=== PATIENT | male | born 1945 | race Caucasian/White ===

== ENCOUNTER 2016-07-13 11:54 | Emergency (ER) | payer OTHER ==
[~2016-07-13] VITALS: Ht 180.3 cm; Wt 104.3 kg
[~2016-07-13 11:54] MED LIST: CARV3.1240 PO; FLUO20CA19 PO; FOLIPOW28 PO; FURO40TA4 PO; LISI2.5T47 PO; NALTPOW PO; PRA25T PO; SIMV-13 PO; THI100I PO
[2016-07-13 12:11] VITALS: BP 109/65
[2016-07-13 16:31] LABS: Basophils # (auto) 0 uL; Basophils % (auto) 0.4 % (0.0-2.0); DEFINITIVE VIEW TRANSMISSION; Eosinophils # (auto) 0.1 uL; Eosinophils % (auto) 2.1 % (0.0-7.0); Hematocrit 38.2 % (41.0-53.0); Hemoglobin 12.4 g/dL (13.5-17.5); Lymphocytes # (auto) 1.8 uL; Lymphocytes % (auto) 24.2 % (10.0-50.0); Mean Corpuscular Hemoglobin 33.6 pg (28.0-32.0); Mean Corpuscular Hgb Conc. 32.5 g/dL (32.0-36.0); Mean Corpuscular Volume 103.3 fL (80.0-100.0); Mean Platelet Volume 8.6 fL (7.4-10.4); Monocytes # (auto) 0.6 uL; Monocytes % (auto) 8.6 % (0.0-12.0); Neutrophils # (auto) 4.7 uL; Neutrophils % (auto) 64.7 % (37.0-80.0); Platelet Count (auto) 212 10^3/uL (140-450); Red Cell Distribution Width 14.8 % (11.6-16.0); White Blood Cell 7.3 10^3/uL (4.4-10.8)
[2016-07-13 16:39] LABS: Albumin 3.5 g/dL (3.4-5.0); BUN/Creatinine Ratio 16.4; Bilirubin, Total 0.4 mg/dL (0.2-1.0); Calcium 8.5 mg/dL (8.5-10.1); Potassium 4.1 mmol/L (3.5-5.1); Total Protein 6.7 g/dL (6.4-8.2)
== END 2016-07-13 18:02 | disposition home or self-care (01) ==
LOC: EDBD 11:54 → ER 12:01
DX: S01.81XA Laceration without foreign body of other part of head, initial encounter (principal); S09.90XA Unspecified injury of head, initial encounter; I50.9 Heart failure, unspecified; J44.9 Chronic obstructive pulmonary disease, unspecified; K76.9 Liver disease, unspecified; Z88.6 Allergy status to analgesic agent; Z88.8 Allergy status to other drugs, medicaments and biological substances; X58.XXXA Exposure to other specified factors, initial encounter; Y93.89 Activity, other specified; Y99.8 Other external cause status; Y92.89 Other specified places as the place of occurrence of the external cause
CPT/HCPCS: 36415; 70450; 70486; 72125; 80053; 80320; 82962; 85025

== ENCOUNTER 2016-07-28 10:08 | Emergency (ER) | payer OTHER ==
[~2016-07-28] VITALS: Ht 177.8 cm; Wt 91.6 kg
[2016-07-28] MEDS ORDERED: SODIUM CHLORIDE 0.9% 1,000 ML IVB ONE (11:15)
[2016-07-28 12:16] LABS: Basophils # (auto) 0 uL; Basophils % (auto) 0.7 % (0.0-2.0); DEFINITIVE VIEW TRANSMISSION; Eosinophils # (auto) 0.1 uL; Eosinophils % (auto) 2.5 % (0.0-7.0); Hemoglobin 12.2 g/dL (13.5-17.5); Lymphocytes # (auto) 1.2 uL; Lymphocytes % (auto) 28.3 % (10.0-50.0); Mean Corpuscular Hemoglobin 32.6 pg (28.0-32.0); Mean Corpuscular Hgb Conc. 31.3 g/dL (32.0-36.0); Mean Platelet Volume 8.7 fL (7.4-10.4); Monocytes # (auto) 0.3 uL; Monocytes % (auto) 7.8 % (0.0-12.0); Neutrophils # (auto) 2.5 uL; Neutrophils % (auto) 60.7 % (37.0-80.0); Platelet Count (auto) 200 10^3/uL (140-450); Red Cell Distribution Width 14.4 % (11.6-16.0); White Blood Cell 4.2 10^3/uL (4.4-10.8)
[2016-07-28 12:27] LABS: Mean Corpuscular Volume 104.1 fL (80.0-100.0)
[2016-07-28 12:32] LABS: Partial Thromboplastin Time 26.8 sec (22.64-33.71); Prothrombin Time 10.3 sec (9.37-12.3)
[2016-07-28 12:41] LABS: Albumin 3.6 g/dL (3.4-5.0); BUN/Creatinine Ratio 16.9; Bilirubin, Total 0.3 mg/dL (0.2-1.0); Calcium 8.2 mg/dL (8.5-10.1); Magnesium 2.2 mg/dL (1.6-2.6); Potassium 4.6 mmol/L (3.5-5.1); Total Protein 6.8 g/dL (6.4-8.2)
[2016-07-28] MEDS ORDERED: THIAMINE INJ 100 MG, MULTIPLE VITAMIN 10 ML, FOLIC ACID 1 MG, MAGNESIUM SULF SDV 50% 8 ... IV ONE ×5 (13:00)
[2016-07-28 13:37] LABS: B-Type Natriuretic Peptide 75.9 pg/mL (0-100)
[2016-07-28 13:38] LABS: Temperature: 23.1 C (20.0-25.0)
[2016-07-28 18:18] VITALS: BP 150/100
== END 2016-07-28 18:55 | disposition short-term general hospital (02) ==
LOC: EDUNIT# 10:08 → ER 10:13
DX: F10.129 Alcohol abuse with intoxication, unspecified (principal); R55 Syncope and collapse; J44.9 Chronic obstructive pulmonary disease, unspecified; I11.0 Hypertensive heart disease with heart failure; I50.9 Heart failure, unspecified; Y90.8 Blood alcohol level of 240 mg/100 ml or more; D50.9 Iron deficiency anemia, unspecified
CPT/HCPCS: 36415; 36600; 70450; 71010; 80053; 80320; 82805; 82962; 83735; 83880; 84484; 85025; 85610; 85730; 93005; 94761; 96361; 96365; 99285; J3411; J3475; J7030

== ENCOUNTER 2016-08-20 16:17 | Emergency (ER) | payer OTHER ==
[~2016-08-20] VITALS: Ht 167.6 cm; Wt 99.8 kg
[2016-08-20 20:07] LABS: Urine RBC None Seen /hpf (0 - 3)
[2016-08-20 20:10] LABS: Basophils # (auto) 0 uL; Basophils % (auto) 0.4 % (0.0-2.0); DEFINITIVE VIEW TRANSMISSION; Eosinophils # (auto) 0.2 uL; Eosinophils % (auto) 3.1 % (0.0-7.0); Hematocrit 44.4 % (41.0-53.0); Hemoglobin 14.6 g/dL (13.5-17.5); Lymphocytes % (auto) 30.4 % (10.0-50.0); Mean Corpuscular Hemoglobin 33.6 pg (28.0-32.0); Mean Corpuscular Hgb Conc. 32.9 g/dL (32.0-36.0); Mean Corpuscular Volume 102.2 fL (80.0-100.0); Mean Platelet Volume 9.1 fL (7.4-10.4); Monocytes # (auto) 0.4 uL; Monocytes % (auto) 6.8 % (0.0-12.0); Neutrophils # (auto) 3.9 uL; Neutrophils % (auto) 59.3 % (37.0-80.0); Platelet Count (auto) 235 10^3/uL (140-450); Red Cell Distribution Width 14.2 % (11.6-16.0); White Blood Cell 6.6 10^3/uL (4.4-10.8)
[2016-08-20 20:14] LABS: Urine Bilirubin Negative (Negative); Urine Blood Negative /uL (Negative); Urine Color Yellow (Yellow); Urine Glucose Normal (Normal); Urine Hyaline Cast FEW /lpf (0 - 2); Urine Ketone Negative (Negative); Urine Mucus FEW (None Seen); Urine Nitrite Negative (Negative); Urine Squamous Epithelial Cell FEW /hpf (<5); Urine Urobilinogen Normal (Negative)
[2016-08-20] MEDS ORDERED: BANANA BAG KIT 1 EA IV ONE (20:27)
[2016-08-20] MEDS ORDERED: THIAMINE INJ 100 MG, MULTIPLE VITAMIN 10 ML, FOLIC ACID 1 MG, MAGNESIUM SULF SDV 50% 8 ... IV ONE ×5 (20:30)
[2016-08-20 20:31] LABS: Albumin 3.8 g/dL (3.4-5.0); BUN/Creatinine Ratio 17.7; Bilirubin, Total 0.3 mg/dL (0.2-1.0); Calcium 8.3 mg/dL (8.5-10.1); Potassium 3.8 mmol/L (3.5-5.1); Total Protein 7.2 g/dL (6.4-8.2)
[2016-08-21 00:45] VITALS: BP 112/82
== END 2016-08-21 02:07 | disposition home or self-care (01) ==
LOC: EDUNIT# 16:17 → ER 16:37
DX: F10.120 Alcohol abuse with intoxication, uncomplicated (principal); K70.9 Alcoholic liver disease, unspecified; I11.0 Hypertensive heart disease with heart failure; I50.9 Heart failure, unspecified; J44.9 Chronic obstructive pulmonary disease, unspecified; Z88.6 Allergy status to analgesic agent; Z88.1 Allergy status to other antibiotic agents; Z88.8 Allergy status to other drugs, medicaments and biological substances
CPT/HCPCS: 36415; 80053; 80320; 81001; 85025; 93005; 96365; 96366; 99285; G0434; J3411; J3475; J7030

== ENCOUNTER 2017-08-12 03:28 | Emergency (ER) | payer OTHER ==
[~2017-08-12] VITALS: Ht 177.8 cm; Wt 117.9 kg
[2017-08-12 04:10] LABS: Basophils # (auto) 0.1 uL; Basophils % (auto) 1.5 % (0.0-2.0); Eosinophils # (auto) 0.3 uL; Eosinophils % (auto) 3.7 % (0.0-7.0); Hematocrit 38.5 % (41.0-53.0); Hemoglobin 12.6 g/dL (13.5-17.5); Lymphocytes # (auto) 1.2 uL; Lymphocytes % (auto) 15.1 % (10.0-50.0); Mean Corpuscular Hemoglobin 30.1 pg (28.0-32.0); Mean Corpuscular Hgb Conc. 32.7 g/dL (32.0-36.0); Monocytes # (auto) 0.7 uL; Monocytes % (auto) 8.8 % (0.0-12.0); Neutrophils # (auto) 5.6 uL; Neutrophils % (auto) 70.9 % (37.0-80.0); Nucleated Red Blood Cells % 0.1 %; Platelet Count (auto) 195 10^3/uL (140-450); Red Blood Cells 4.18 10^6/uL (4.5-5.90); Red Cell Distribution Width 18.7 % (11.8-14.3); White Blood Cell 7.9 10^3/uL (4.4-10.8)
[2017-08-12 04:27] LABS: Alanine Aminotransferase 20 U/L (16-61); Albumin 3.6 g/dL (3.4-5.0); Anion Gap 7 (5-15); Aspartate Aminotransferase 42 U/L (15-37); BUN/Creatinine Ratio 20.7; Blood Urea Nitrogen 35 mg/dL (7-18); Calcium 8.2 mg/dL (8.5-10.1); Carbon Dioxide 28 mmol/L (21-32); Chloride 104 mmol/L (98-107); GFR African American 52 mL/min; GFR Non-African American 43 mL/min; Glucose 91 mg/dL (74-106); Potassium 3.6 mmol/L (3.5-5.1); Sodium 139 mmol/L (136-145)
[2017-08-12 04:32] LABS: Alkaline Phosphatase 109 U/L (45-117); Bilirubin, Total 0.3 mg/dL (0.2-1.0); Total Protein 7.6 g/dL (6.4-8.2)
[2017-08-12 04:33] LABS: INR 0.94 (0.9-1.15); Prothrombin Time 10.2 sec (9.37-12.3)
[2017-08-12 08:17] LABS: Urine WBC None Seen /hpf (0 - 3)
[2017-08-12 08:27] LABS: Urine Bacteria NONE SEEN /hpf (None Seen); Urine Blood Negative /uL (Negative); Urine Specific Gravity 1.021 (1.001-1.035)
[2017-08-12 10:22] VITALS: BP 110/68
== END 2017-08-12 10:37 | disposition short-term general hospital (02) ==
LOC: EDBD 03:28 → ER 03:32
DX: G93.41 Metabolic encephalopathy (principal); D50.9 Iron deficiency anemia, unspecified; I11.0 Hypertensive heart disease with heart failure; I50.9 Heart failure, unspecified; J44.9 Chronic obstructive pulmonary disease, unspecified
CPT/HCPCS: 36415; 70450; 71045; 72125; 80053; 81001; 83880; 84484; 85025; 85610; 85730; 93005

== ENCOUNTER 2017-10-26 21:22 | Emergency (ER) | payer OTHER ==
[~2017-10-26] VITALS: Ht 177.8 cm; Wt 108.9 kg
[2017-10-27] MEDS ORDERED: IPRATROPIUM BROM 0.5 MG/2.5ML INH SOL NEB ONE (01:30)
[2017-10-27] MEDS ORDERED: ALBUTEROL SULF 2.5 MG/0.5ML(0.5%) NEB SOLN NEB ONE (01:30)
[2017-10-27] MEDS ORDERED: methylPREDNISolone SOD SUCC 125 MG/2 ML VL IV ONE (01:30)
[2017-10-27 02:28] LABS: Basophils # (auto) 0.1 uL; Basophils % (auto) 0.9 % (0.0-2.0); Eosinophils # (auto) 0.1 uL; Eosinophils % (auto) 1.4 % (0.0-7.0); Hematocrit 37.9 % (41.0-53.0); Hemoglobin 12.2 g/dL (13.5-17.5); Lymphocytes # (auto) 1.6 uL; Mean Corpuscular Hgb Conc. 32.2 g/dL (32.0-36.0); Monocytes # (auto) 0.7 uL; Monocytes % (auto) 13.7 % (0.0-12.0); Neutrophils # (auto) 2.9 uL; Nucleated Red Blood Cells % 0.1 %; Platelet Count (auto) 164 10^3/uL (140-450); Red Blood Cells 4.08 10^6/uL (4.5-5.90); Red Cell Distribution Width 19.4 % (11.8-14.3); White Blood Cell 5.3 10^3/uL (4.4-10.8)
[2017-10-27 02:32] LABS: Alanine Aminotransferase 17 U/L (16-61); Albumin 3.4 g/dL (3.4-5.0); Anion Gap 11 (5-15); Aspartate Aminotransferase 25 U/L (15-37); BUN/Creatinine Ratio 15.7; Blood Urea Nitrogen 17 mg/dL (7-18); Calcium 7.6 mg/dL (8.5-10.1); Carbon Dioxide 24 mmol/L (21-32); Chloride 102 mmol/L (98-107); GFR African American 87 mL/min; GFR Non-African American 72 mL/min; Glucose 78 mg/dL (74-106); Magnesium 2.4 mg/dL (1.6-2.6); Potassium 3.7 mmol/L (3.5-5.1); Sodium 137 mmol/L (136-145)
[2017-10-27 02:38] LABS: Alkaline Phosphatase 80 U/L (45-117); Bilirubin, Total 0.4 mg/dL (0.2-1.0); Total Protein 6.7 g/dL (6.4-8.2)
[2017-10-27] MEDS ORDERED: PIPERACILLIN-TAZO 4.5GM 100 ML IV ONE (05:30)
[2017-10-27 08:31] VITALS: BP 135/83
== END 2017-10-27 08:45 | disposition short-term general hospital (02) ==
LOC: EDBD 21:22 → ER 21:24
DX: J44.0 Chronic obstructive pulmonary disease with (acute) lower respiratory infection (principal); J96.90 Respiratory failure, unspecified, unspecified whether with hypoxia or hypercapnia; I11.0 Hypertensive heart disease with heart failure; I50.9 Heart failure, unspecified
CPT/HCPCS: 36415; 36600; 71045; 80053; 82805; 83735; 83880; 84484; 85025; 87040; 93005; 94640; 96365; 96375; 99291; J2543; J2930